=== PATIENT | male | born 1950 | race Caucasian/White ===

== ENCOUNTER 2021-02-07 14:12 | Outpatient (CLI) | payer MEDICARE | END 2021-02-07 14:13 | disposition home or self-care (01) | LOC: BICULT 14:12 | PROVIDERS: ATTEND Family Medicine | DX: N18.4 Chronic kidney disease, stage 4 (severe) (principal); R07.81 Pleurodynia; S22.32XA Fracture of one rib, left side, initial encounter for closed fracture; W06.XXXA Fall from bed, initial encounter | CPT/HCPCS: 76770 ==

== ENCOUNTER 2021-10-31 13:30 | Emergency (ER) | payer MEDICARE | END 2021-10-31 16:33 | disposition home or self-care (01) | LOC: ERS 13:30 | DX: S01.01XA Laceration without foreign body of scalp, initial encounter (principal); S40.212A Abrasion of left shoulder, initial encounter; I10 Essential (primary) hypertension; E11.9 Type 2 diabetes mellitus without complications; F17.210 Nicotine dependence, cigarettes, uncomplicated; Z79.899 Other long term (current) drug therapy; Z79.84 Long term (current) use of oral hypoglycemic drugs; W19.XXXA Unspecified fall, initial encounter | CPT/HCPCS: 12001; 70450; 71045; 72125; 72170 ==